=== PATIENT | female | born 1995 | race Caucasian/White ===

== ENCOUNTER 2016-09-26 18:24 | Emergency (ER) | payer MEDICAID ==
[~2016-09-26] VITALS: Ht 172.7 cm; Wt 63.5 kg
[~2016-09-26 18:24] MED LIST: AMOX500C2 PO; NITR-65 PO; ONDAN4ODT PO
[2016-09-26] MEDS ORDERED: PRD20T PO (18:50)
[2016-09-26] MEDS ORDERED: CEPH-507 PO (18:50)
--- NOTE | 2016-09-26 18:50 | ED EENT ---
History of Present Illness General Chief Complaint: Oral/Throat Problems Stated Complaint: CONGESTION,FEVER,HEADACHE Nursing Triage Note: patient reports sore throat and fever starting this morning, patient denies taking meds for pain or fever Source: patient Exam Limitations: no limitations History of Present Illness Time seen by provider: 18:47 Initial Comments To ER with a nonproductive cough, sore throat chills and rhinorrhea that began this morning. Timing/Duration: abrupt Severity: moderate Location: nose, throat Associated Symptoms: cough, sore throat Allergies and Home Medications Allergies Coded Allergies: No Known Drug Allergies (Unverified , 01/08/12) Home Medications No Active Prescriptions or Reported Meds Review of Systems Constitutional: see HPI Eyes: No Symptoms Reported Ears: No Symptoms Reported Nose: see HPI, other (rhinorrhea) Mouth: see HPI Throat: see HPI, pain Respiratory: see HPI, cough Cardiovascular: no symptoms reported Past Jecpdrz-Hgtvdw-Ghfyrn Hx Patient Social History Alcohol Use: Denies Use Recreational Drug Use: No Smoking Status: Never a Smoker Recent Foreign Travel: No Contact w/Someone Who Travel: No Recent Infectious Disease Expo: No Recent Hopitalizations: No Surgeries HX Surgeries: No Respiratory Hx Respiratory Disorders: No Cardiovascular Hx Cardiac Disorders: No Neurological Hx Neurological Disorders: No Genitourinary Hx Genitourinary Disorders: No Gastrointestinal Hx Gastrointestinal Disorders: No Musculoskeletal Hx Musculoskeletal Disorders: No Endocrine Hx Endocrine Disorders: No Cancer Hx Cancer: No Physical Exam Vital Signs Vital Sign - Last 12Hours 09/26/16 18:41 Temp 100.4 Pulse 112 Resp 18 B/P (MAP) 120/73 Pulse Ox 100 General Appearance: WD/WN, no apparent distress Eyes: bilateral eye EOMI, bilateral eye PERRL, bilateral eye normal inspection Ears: bilateral ear TM normal, bilateral ear auricle normal, bilateral ear canal normal Mouth/Throat: normal mouth inspection, pharynx normal Neck: non-tender, full range of motion Cardiovascular: no murmur, tachycardia Respiratory: normal breath sounds, no respiratory distress, no accessory muscle use Gastrointestinal: non tender, soft Neurologic/Psychiatric: alert, normal mood/affect Skin: normal color, warm/dry Progress/Results/Core Measures Results/Orders Vital Signs/I&O Vital Sign - Last 12Hours 09/26/16 18:41 Temp 100.4 Pulse 112 Resp 18 B/P (MAP) 120/73 Pulse Ox 100 Blood Pressure Mean: 89 Departure Impression Impression: Primary Impression: Upper respiratory infection Disposition: 01 HOME, SELF-CARE Condition: Stable Departure-Patient Inst. Decision time for Depature: 18:48 Referrals: NO,LOCAL PHYSICIAN (PCP/Family) Primary Care Physician Patient Instructions: NO INSTRUCTIONS GIVEN Add. Discharge Instructions: 1. Medication as directed 2. You may also use [id number] DayQuil and NyQuil to help with the runny nose 3. Return to ER for any worsening 4. See your doctor next week All discharge instructions reviewed with patient and/or family. Voiced understanding. Scripts Prednisone (Prednisone) 20 Mg Tab 40 MG PO DAILY, #6 TAB Take 3 tabs(60mg)daily,decrease by 1/2 tab(10mg)every other day. Prov: AARTI SCHAFFER APRN 09/26/16 Cephalexin (Keflex) 500 Mg Capsule 500 MG PO QID, #28 CAP Prov: AARTI SCHAFFER APRN 09/26/16 AARTI SCHAFFER APRN Sep 26, 2016 18:50
[2016-09-26 18:54] VITALS: BP 118/72
== END 2016-09-26 18:53 | disposition home or self-care (01) ==
LOC: EDUNIT# 18:24 → ER 18:27
DX: J06.9 Acute upper respiratory infection, unspecified (principal); R50.9 Fever, unspecified
CPT/HCPCS: 99282